=== PATIENT | female | born 1990 | race Caucasian/White ===

== ENCOUNTER 2017-02-06 09:58 | Emergency (ER) | payer BC, OTHER ==
[~2017-02-06] VITALS: Ht 170.2 cm; Wt 93.8 kg
[2017-02-06] MEDS ORDERED: SODIUM CHLORIDE FLUSH 10ML SYR IVF ONE (10:30)
[2017-02-06] MEDS ORDERED: FAMOTIDINE 20 MG/2 ML IVP ONE (10:30)
[2017-02-06] MEDS ORDERED: SODIUM CHLORIDE 0.9% 1,000ML IVBOLUS ONE (10:30)
[2017-02-06] MEDS ORDERED: ONDANSETRON 2MG/ML, 2ML IVPush ONE ×2 (10:30→13:00)
[2017-02-06 11:05] LABS: ASPARTATE AMINO TRANSFERASE 8 U/L (15-37); BLOOD UREA NITROGEN 8 mg/dL (7-18)
[2017-02-06] MEDS ORDERED: ONDANSETRON 2MG/ML, 2ML ONE ×2 (11:20→12:41)
[2017-02-06] MEDS ORDERED: FAMOTIDINE 20 MG/2 ML ONE (11:21)
[2017-02-06] MEDS ORDERED: LIDOCAINE 1%, 20ML ONE (12:27)
[2017-02-06] MEDS ORDERED: POTASSIUM CHLORIDE 20 MEQ TAB.ER.PRT ONE ×2 (12:28→12:33)
[2017-02-06] MEDS ORDERED: POTASSIUM CHLORIDE 20 MEQ TAB.ER.PRT PO ONE (12:30)
[2017-02-06 14:24] VITALS: BP 123/63
== END 2017-02-06 14:29 | disposition home or self-care (01) ==
LOC: ED 10:31
DX: K52.9 Noninfective gastroenteritis and colitis, unspecified (principal); N30.00 Acute cystitis without hematuria
CPT/HCPCS: 36415; 80053; 81001; 83690; 85025; 87086; 96361; 96374; 96375; 96376; 99285; J2405; J7030; S0028